=== PATIENT | male | born 1930 | race Caucasian/White ===

== ENCOUNTER 2020-06-02 18:04 | Emergency (ER) | payer OTHER ==
[2020-06-02 19:09] LABS: Bilirubin Moderate (Negative); Blood, Urine Large (Negative); Glucose, Urine (Dipstick) 100 mg/dL (Negative); Ketone, Urine 15 mg/dL (Negative); Leukocyte Large (Negative); Nitrite Negative (Negative); Protein, Urine (Dipstick) > or equal to 300 mg/dL (Neg-Trace); Specific Gravity, Urine 1.025 (1.005-1.030)
[2020-06-02 19:11] LABS: Clarity Turbid (Clear)
[2020-06-02 19:17] LABS: Bacteria/HPF 4+ HPF (None Seen); RBC/HPF Greater than 50 HPF (0-3); Squamous Epithelial None Seen HPF (0-3); WBC/HPF Greater than 50 HPF (0-3)
[2020-06-02 19:23] LABS: #Lymphocytes 0.5 thou/uL (1.20-3.40); #Neutrophils 6.8 thou/uL (1.40-6.50); %Eosinophils 0.4 % (0.0-10.0); %Monocytes 11.4 % (0.0-10.0); %Neutrophils 82.2 % (42.0-75.0); Hemoglobin 12.6 g/dL (14.0-18.0); Mean Corpuscular HGB CONC 33.3 g/dL (32.0-36.0); Mean Corpuscular Volume 87.2 fL (78.0-98.0); Mean Platelet Volume 8.2 fL (7.4-10.4); Platelet Count 176 thou/uL (130-400); Red Blood Cell (RBC) Count 4.35 mill/uL (4.70-6.10); White Blood Cell (WBC) Count 8.3 thou/uL (4.8-10.8)
[2020-06-02 19:28] LABS: INR-International Normal Ratio 1.2; Prothrombin Time 15.2 sec (12.0-14.7)
--- NOTE | 2020-06-02 19:29 | RAD ---
EXAM: CHEST ONE VIEW: 06/02/20 HISTORY: Blood in urine for several days. FINDINGS: Heart size is borderline. No confluent pneumonia, overt edema, or pleural effusion. IMPRESSION: Borderline sized heart. No significant acute intrathoracic disease. No old studies. POS: RRE
[2020-06-02 19:48] LABS: ALT (SGPT) 16 U/L (8-55); AST (SGOT) 29 U/L (5-34); Albumin 3.8 g/dL (3.4-4.8); Alkaline Phosphatase 95 U/L (40-110); Anion Gap 16 mmol/L (10-20); BUN (Urea Nitrogen) 22 mg/dL (8.4-25.7); Bilirubin, Total 1.7 mg/dL (0.2-1.2); CK (CPK) 204 U/L (30-200); Calc. Creatinine Clearance 0 mL/min (70-130); Calcium 8.9 mg/dL (7.8-10.44); Carbon Dioxide 19 mmol/L (23-31); Chloride 103 mmol/L (98-107); Estimated GFR-MDRD 49; Globulin 3.8 g/dL (2.4-3.5); Glucose 104 mg/dL (83-110); Potassium 5.2 mmol/L (3.5-5.1); Protein, Total 7.6 g/dL (5.8-8.1); Sodium 133 mmol/L (136-145)
[2020-06-02 19:59] LABS: CKMB 2.3 ng/mL (0-6.6)
[2020-06-02] MEDS ORDERED: cefTRIAXone\\ROCEPHIN 2 GM VIAL ONE (21:40)
[2020-06-03] MEDS ORDERED: Acetaminophen 500 MG TAB ONE (00:14)
--- NOTE | 2020-06-03 02:29 | CON ---
DATE OF CONSULTATION: 06/02/2020 REASON FOR CONSULTATION: Urinary retention. CHIEF COMPLAINT: Suprapubic pain. HISTORY OF PRESENT ILLNESS: This is an 89-year-old male, currently incarcerated, who reports a 3-week history of difficulty urinating with dysuria, suprapubic pain, straining, and incomplete emptying. He has not had any recent fevers, flank pain, nausea, vomiting, or chest pains. He did develop blood in his urine over the past few days. He has a history of transurethral resection of prostate in 2003 in [place], [place]. He has not had any episodes of retention or infection since then. He is not currently on any prostate medications. PAST MEDICAL HISTORY: BPH and bladder infections prior to TURP. PAST SURGICAL HISTORY: Reviewed. Pertinent for transurethral resection of prostate in 2003. MEDICATIONS: Reviewed with the patient. No current blood thinners or prostate medications. FAMILY HISTORY: Reviewed and noncontributory. REVIEW OF SYSTEMS: Ten-point review of systems is negative except as mentioned in HPI. PHYSICAL EXAMINATION: VITAL SIGNS: Afebrile. Vitals stable. No acute distress. Conversant. HEENT: Head, normocephalic and atraumatic. Extraocular movements intact. Sclerae nonicteric. NECK: Supple. Trachea midline. LUNGS: Unlabored breathing. Symmetric chest expansion. HEART: Regular rate and rhythm. ABDOMEN: Soft, nontender, and nondistended. No flank tenderness. Moderate suprapubic tenderness. : Munoz catheter in good position, draining cloudy urine with several blood clots. SKIN: Warm and dry. NEUROLOGIC: Alert and oriented x3. PSYCHIATRIC: Normal mood and affect. LABORATORY DATA: White count 8.3 with 82% neutrophil. Creatinine 1.37. Urinalysis, large leukocyte esterase and negative nitrite. PROCEDURE: Under sterile conditions, the patient's bladder was irrigated with about 300 mL of sterile water until there were no further blood clots and the urine was clear. ASSESSMENT AND PLAN: Urinary retention, enlarged prostate with lower urinary tract symptoms, and acute cystitis with hematuria. Munoz catheter to remain likely 1 to 2 weeks. This could be removed at his facility. He needs to be started on antibiotics and Flomax. TIME SPENT: A 50 minutes spent in the patient care. Job ID: [id number]
[2020-06-03 13:49] LABS: SARS-CoV-2 MS2 Positive; SARS-CoV-2 N Gene Positive; SARS-CoV-2 S Gene Positive; SARS-CoV-2 orf1ab Positive
== END 2020-06-03 01:35 | disposition short-term general hospital (02) ==
LOC: EEVIPCON 18:04 → ERS 18:04
DX: R31.9 Hematuria, unspecified (principal); R55 Syncope and collapse; R79.89 Other specified abnormal findings of blood chemistry; N39.0 Urinary tract infection, site not specified; I10 Essential (primary) hypertension; N40.0 Benign prostatic hyperplasia without lower urinary tract symptoms; Z79.899 Other long term (current) drug therapy
CPT/HCPCS: 36415; 51702; 71045; 80053; 81003; 81015; 82550; 82553; 83605; 83735; 84484; 85025; 85610; 85730; 87077; 87086; 87186; 87635; 93005; 96361; 96365; J0696; U0003